=== PATIENT | female | born 1965 ===

== ENCOUNTER 2025-06-13 09:49 | Outpatient (REF) | payer SELFPAY ==
--- OUTSIDE RECORDS SUMMARY | 2025-06-13 10:48 | XMS_ITS | Clinical Summary ---
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 Name Role Phone Pernell Earl MD Primary Care Provider [phone] Allergies Active Allergy Reactions Criticality Noted Date Comments Amoxicillin Other (see comments) 07/25/2022 Amoxicillin-Pot Clavulanate 07/25/20 Penicillin G Benzathine 07/25/2022 Medications No known medications Active Problems Problem Noted Date Diagnosed Date Stage 3a chronic kidney disease 11/23/2024 Anemia 07/25/2022 Serum creatinine above reference range 2 Renal tubular acidosis 07/25/2022 Peripheral edema 07/25/2022 Overactive bladder 07/25/2022 Hypothyroidism 07/25/2022 Hyperlipidemia 07/25/2022 Diabetes insipidus 07/25/2022 Resolved Problems Problem Noted Date Diagnosed Date Resolved Date Chronic kidney disease, stage 2 (mild) 08/06/2022 11/23/2024 Immunizations Immunization Administration Dates Next Due Influenza Split High Dose Preservative Free IM 1 Pneumococcal Polysaccharide 12/09/2013 Social History Tobacco Use Types Packs/Day Years Used Date Smoking Tobacco: Never Comments:Fara is a resident of [facility] and is wheelchair bound. Patient has a tracheostomy in place. Patient has had an anoxic brain injury and a TBI. Alcohol Use Standard Drinks/Week Comments No 0 (1 standard drink = 0.6 oz pur e alcohol) Comments Unknown Sex and Gender Information Value Date Recorded Sex Assigned at Not on file Legal Sex Female 4:35 PM EST Gender Identity Not on file Sexual Orientation Not on file Last Filed Vital Signs Vital Sign Reading Time Taken Comments Blood Pressure 110/64 09/13/2019 12:00 PM EDT Pulse - - Temperature - - Respiratory Rate - - Oxygen Saturation - - Inhaled Oxygen Concentration - - Weight 77.1 kg (170 lb) 09/13/2019 12:00 PM EDT Height 162.6 cm (5' 4 ) 09/13/2019 12:00 PM EDT Body Mass Index 29.18 09/13/2019 12:00 PM EDT Plan of Treatment Upcoming Encounters Date Type Department Care Team (Late st Contact Info) Description 06/28/2025 10:20 AM EDT Office Visit [facility], [address] [place] [id number] Augustine Gonzalez MD [address] [address] Health Maintenance Due Date Last Done Comments Breast Cancer Screening 1966 Hepatitis B Vaccine (1 of 3 - 19+ 3-dose series) 1985 Pneumococcal Vaccine: 50+ Ye ars (3 of 3 - PCV) 12/09/2014 12/09/2013, 01/16/2013 Colorectal Cancer Screening: Annual FOBT 2015 Colorectal Cancer Screening: Colonoscopy 2015 Colorectal Cancer Screening: Sigmoidoscopy 2015 Diabetes: Hemoglobin A1C 12/23/2023 Diabetes: Ophthalmology Exam 12/23/2023 Diabetes: Pedal Pulse Checked 12/23/2023 Diabetes: Sensory Foot Exam 12/23/2023 Diabetes: Visual Foot Exam 12/23/2023 Influenza Vaccine (#1) 2025 09/09/2017 Pneumococcal Vaccine: Peds ( 0 to 5 Years) and At-Risk Patients (6 to 49 Years) Discontinued 12/09/2013, 01/16/2013 Insurance Medicare Medicaid [place] Care Teams Shipyard Painter Helper Relationship Specialty Start Date End Date Pernell Earl MD [address] [facility] [place] PCP - General 09/21/19
--- OUTSIDE RECORDS SUMMARY | 2025-06-13 10:48 | XMS_ITS | Clinical Summary ---
Author Organization [employer] Address [address] [place] [address] Care Team Providers Care Manager Environmental Health Name Role Phone Unavailable Primary Care Provider Unavailabl e Allergies Active Allergy Reactions Criticality Noted Date Comments Amoxicillin Other,Unknown 12/10/2016 Amoxicillin-Pot Clavulanate Unknown 07/25/2022 tolerates cephalosporins Clavulanic Acid Unknown High 12/10/2016 Penicillin G Benzathine 07/25/2022 Medications albuterol 0.63 MG/3ML nebulizer solution Active acetaminophen (Tylenol) 325 MG tablet Take 1 tablet by mouth every 4 (four) hours. Active cholecalciferol (Vitamin D-3) 1.25 MG (18430 UT) capsule Active cloZAPine (Clozaril) 25 MG tablet Take 1 tablet by mouth every 8 (eight) hours. Active gemfibrozil (Lopid) 600 MG tablet 600 mg. 3 Active lamoTRIgine (LaMICtal XR) 25 mg tablet sustained-releas e 24 hour 24 hr tablet Active levothyroxine (Synthroid, Levoxyl) 150 MCG tablet 150 mcg. 3 Active LORazepam (Ativan) 1 MG tablet 1 mg. 3 Active melatonin 3 MG tablet Active metFORMIN (Glucophage) 500 MG tablet 500 mg. 3 Active metoprolol tartrate (Lopressor) 25 MG tablet 25 mg. 6 Active niacin 500 MG ER capsule Take 1 capsule by mouth at bed time. Active mometasone-formo terol (Dulera) 200-5 MCG/ACT inhaler Inhale 2 puffs every 12 (twelve) hours. Active traZODone (Desyrel) 50 MG tablet 50 mg. 3 Active valproic acid (Depakene) 250 MG/5ML oral liquid 750 mg. 3 Active sodium bicarbonate 650 MG tablet Active magnesium hydroxide (Milk of Magnesia) 400 MG/5ML suspension Take 30 mL by mouth at bed time. Active guaiFENesin 200 MG/5ML liquid Take 5 mL by mouth every 4 (four) hours. Active loperamide (Imodium) 2 MG capsule Take 2 mg by mouth. 3 Active acetylcysteine (Acetadote) 200 MG/ML injection Infuse into a venous catheter. Active omega-3 (Fish Oil) 1000 MG capsule Take 2 capsules by mouth every 12 (twelve) hours. Active Social History Tobacco Use Types Packs/Day Years Used Date Smoking Tobacco: Unknown Tobacco Cessation:Counseling Given: Not Answered Comments Unknown Sex and Gender Information Value Date Recorded Sex Assigned at Female 09/16/2022 10:25 AM EDT Legal Sex Female 10:25 AM EDT Gender Identity Female 09/16/2022 10:25 AM EDT Sexual Orientation Straight 09/16/2022 10 :25 AM EDT Plan of Treatment Health Maintenance Due Date Last Done Comments CT Colonography 1966 Colonoscopy 1966 Colorectal Cancer Screening 1966 Depression Screening 1966 FIT DNA/Cologuard 1966 FIT 1966 FOBT 1966 HIV Screening 1966 Lipid Panel 1966 SDOH Screening 1966 Sigmoidoscopy 1966 Disability Screening 1966 Alcohol/Substance Use Screening 1978 Hepatitis C Screening 1984 Hepatitis B Vaccines (1 of 3 - 19+ 3-dose series) 1985 Pap Smear 1987 Cervical Cancer Screening 1996 HPV/Cotest 1996 Mammogram 2006 Pneumococcal Vaccine: 50+ Years (2 of 2 - PCV) 11/30/2018 11/30/2017, 12/09/2013, 01/16/2013 Dental X-Ray: Full Mouth 10/28/2020 10/27/2017 Dental Oral Exam 02/28/2023 08/29/2022, 04/2019, 02/25/2018, Additional history exists DTaP/Tdap/Td Vaccines (3 - Td or Tdap) 12/14/2023 12/14/2013, 04/16/2012 COVID-19 Vaccine ( season) 2024 11/19/2023, 10/08/2022, 06/26/2022, Additional history exists Dental Prophylaxis 10/07/2024 04/05/2024, 1 , 01/21/2020, Additional history exists Tobacco Screening 04/05/2025 04/05/2024 Dental X-Ray: Bitewings 04/06/2025 04/05/20 24, 08/29/2022, 10/27/2017 Influenza Vaccine (#1) 2025 3, 09/17/2022, 10/02/2021, Additional history exists RSV Patients and Patients Aged 60 years or older (1 - 1-dose 75+ series) 2041 Zoster Vaccines Completed 07/06/2023, 03/10/2023 HIB Vaccines Aged Out No longer eligi ble based on patient's age to complete this topic HPV Vaccines Aged Out No longer eligi ble based on patient's age to complete this topic Hepatitis A Vaccines Aged Out No long er eligible based on patient's age to complete this topic IPV Vaccines Aged Out No longer eligi ble based on patient's age to complete this topic Meningococcal B Vaccine Aged Out No l onger eligible based on patient's age to complete this topic Meningococcal Vaccine Aged Out No katelyn cooper eligible based on patient's age to complete this topic RSV under 20 months Aged Out No longe r eligible based on patient's age to complete this topic Rotavirus Vaccines Aged Out No longer eligible based on patient's age to complete this topic Procedures Procedure Name Priority Date/Time Associated Diagnosis Comments PROPHYLAXIS - ADULT Routine 04/05/2024 2 :00 PM EDT BITEWINGS - 4 RADIOGRAPHIC IMAGES Routine 04/05/2024 2:00 PM EDT PERIODIC ORAL EVALUATION - ESTABLISHED PATIENT Routine 08/29/2022 12:00 AM EDT INTRAORAL - COMPLETE SERIES OF RADIOGRAPHIC IMAGES Routine 10/27/2017 12:00 AM EST from Last 3 Months or Most Recently Relevant to Health Maintenance Insurance [place] AD[place]
== END 2025-06-13 09:50 | disposition home or self-care (01) ==
LOC: HO.WMHL 09:49
PROVIDERS: Visit Provider Nurse Practitioner
DX: Z13.89 Encounter for screening for other disorder (principal)
CPT/HCPCS: 36415; 80053; 84550; 85025